=== PATIENT | female | born 1970 | race African-American/Black ===

== ENCOUNTER 2021-07-15 22:56 | Inpatient (IN) ==
[2021-07-16 00:42] LABS: Basophils % 0.3 % (0.0-0.8); Hematocrit 38.9 VOL% (35.7-47.0); Hemoglobin 12.9 GM/DL (12.0-16.0); Immature Granulocytes % 0.5 %; Immature Granulocytes Absolute 0.04 #; Lymphocytes # 1.4 10*3/uL (1.4-4.0); Lymphocytes % 18.8 % (21.3-54.2); Mean Corpuscular HGB Conc 33.2 GM/DL (32-36); Mean Corpuscular Volume 94.2 FL (87-102); Mean Platelet Volume 10.2 FL (9.6-12.0); Monocytes % 4.6 % (1.7-12.7); Neutrophils % 75.8 % (38.7-73.9); Platelet Count 228 T/CUMM (130-400); Red Blood Count 4.13 MC/CUMM (3.8-5.5); Red Cell Distribution Width 13.5 % (9.3-17.3); White Blood Count 7.3 T/CUMM (4-12)
[2021-07-16 00:48] LABS: Alanine Aminotransferase 23 U/L (13-56); Albumin 3.9 G/DL (3.4-5.0); Alkaline Phosphatase 99 U/L (45-117); Aspartate Amino Transferase 63 U/L (0-37); Bilirubin,Total < 0.39 MG/DL (0.20-1.00); Blood Urea Nitrogen 15 MG/DL (7-18); Calcium 8.9 MG/DL (8.5-10.1); Carbon Dioxide 27 MMOL/L (21-32); Estimated Glom Filtration Rate 87 ML/MIN; Glucose 138 MG/DL (74-106); Osmolality,Calculated 272.1 MOS/KG (273-304); Potassium 2.9 MMOL/L (3.5-5.1); Sodium 135 MMOL/L (136-145); Total Protein 8.1 G/DL (6.4-8.2)
[2021-07-16] MEDS ORDERED: MORPHINE 2 MG/1 ML SYRINGE IV PRN (00:50)
[2021-07-16] MEDS ORDERED: ONDANSETRON 4 MG/2 ML VIAL IV PRN ×2 (00:50→10:22)
[2021-07-16] MEDS ORDERED: MAGNESIUM HYDROXIDE SUSP 30 ML UDCUP PO PRN ×2 (00:50→08:59)
[2021-07-16 01:10] LABS: Barbiturates Screen,Urine Negative (Negative); Benzodiazepines Screen,Urine Negative (Negative); Cannabinoid Screen,Urine Negative (Negative); Opiate Screen,Urine Positive (Negative); Phencyclidine Screen,Urine Negative (Negative)
[2021-07-16 01:15] LABS: Bilirubin,Urine Negative (Negative); Blood, Urine Negative (Negative); Glucose,Urine (UA) Negative (Negative); Granular Casts,Urine 4 /LPF (0-1); Hyaline Casts,Urine 9 /LPF (0-3); Ketones,Urine Negative (Negative); Mucus,Urine Occasional /LPF (Occasional); Nitrite,Urine Negative (Negative); Protein,Urine 30 MG/DL; RBC,Urine <1 /HPF (0-4); Squamous Epithelial Cell,Urine Occasional /HPF (0-10); Urine Appearance CLEAR (Clear); Urine Color Yellow (Yellow); Urine Specific Gravity 1.008 (1.001-1.035); Urine Urobilinogen < 2.0 EU/DL (0.2-1.0)
[2021-07-16 01:34] LABS: PT Patient Result 10.8 SECS (10.5-12.0); Partial Thromboplastin Time 26.2 SECS (23.8-32.1)
[2021-07-16] MEDS: DEXTROSE 5% NACL 0.45% 1,000 ML IV SCH ×3 (01:35→23:12)
[2021-07-16] MEDS: HYDROmorphone 2 MG/1 ML VIAL IV PRN ×2 (01:36→05:50)
[2021-07-16 03:07] LABS: Hypochromasia 2+; Platelet Estimate Normal; Reactive Lymphocytes 1+
[2021-07-16] MEDS ORDERED: POTASSIUM CHLORIDE 20 MEQ TABLET PO ONE (03:07)
[2021-07-16] MEDS ORDERED: POTASSIUM CHLORIDE 20 MEQ TABLET PO STA (03:17)
[2021-07-16] MEDS ORDERED: fentaNYL 100 MCG/2 ML VIAL ONE ×2 (08:11→09:19)
[2021-07-16] MEDS ORDERED: MIDAZOLAM 2 MG/2 ML VIAL ONE (08:11)
[2021-07-16] MEDS: PANTOPRAZOLE 40 MG TABLET PO SCH (08:18)
[2021-07-16] MEDS ORDERED: BISACODYL 10 MG SUPP RECTAL PRN (08:59)
[2021-07-16] MEDS ORDERED: LACTULOSE 20 GM/30 ML UDCUP PO PRN (08:59)
[2021-07-16] MEDS ORDERED: PROMETHAZINE 25 MG/1 ML VIAL IM PRN (08:59)
[2021-07-16] MEDS ORDERED: diphenhydrAMINE CAP 25 MG CAPSULE PO PRN (08:59)
[2021-07-16] MEDS ORDERED: SEVOFLURANE 1 UNIT/15 MINUTE INH ONE (09:53)
[2021-07-16] MEDS ORDERED: LIDOCAINE 2% 5 ML VIAL ONE (09:53)
[2021-07-16] MEDS ORDERED: ROCURONIUM 50 MG/5 ML VIAL IV ONE (09:53)
[2021-07-16] MEDS ORDERED: PHENYLEPHRINE 1 MG/10 ML SYRINGE IV ONE (09:53)
[2021-07-16] MEDS ORDERED: propofoL 200 MG/20 ML VIAL IV ONE (09:53)
[2021-07-16] MEDS ORDERED: DEXAMETHASONE 4 MG/1 ML VIAL ONE (09:53)
[2021-07-16] MEDS ORDERED: ONDANSETRON 4 MG/2 ML VIAL ONE (09:53)
[2021-07-16] MEDS ORDERED: NEOSTIGMINE 10 MG/10 ML VIAL ONE (09:55)
[2021-07-16] MEDS ORDERED: GLYCOPYRROLATE 0.4 MG/2 ML VIAL ONE (09:55)
[2021-07-16] MEDS ORDERED: MEPERIDINE 25 MG/1 ML VIAL IV PRN (10:22)
[2021-07-16] MEDS ORDERED: HYDROmorphone 2 MG/1 ML VIAL IV PRN (10:22)
[2021-07-16] MEDS: LACTATED RINGERS 1,000 ML IV SCH (11:19)
[2021-07-16] MEDS ORDERED: ALBUTEROL/IPRATROPIUM 3 ML NEB RESP TX PRN (13:32)
[2021-07-16] MEDS ORDERED: LORazepam 2 MG/1 ML VIAL IV PRN (13:33)
[2021-07-16] MEDS ORDERED: NICOTINE 7 MG/24 HR PATCH TRANSDERM PRN (13:53)
[2021-07-17 04:26] LABS: Basophils % 0.1 % (0.0-0.8); Hematocrit 29.2 VOL% (35.7-47.0); Immature Granulocytes % 0.4 %; Immature Granulocytes Absolute 0.03 #; Lymphocytes # 1.6 10*3/uL (1.4-4.0); Lymphocytes % 18.3 % (21.3-54.2); Mean Corpuscular HGB Conc 32.5 GM/DL (32-36); Mean Corpuscular Volume 96.4 FL (87-102); Mean Platelet Volume 10.6 FL (9.6-12.0); Monocytes % 9.9 % (1.7-12.7); Neutrophils % 71.3 % (38.7-73.9); Red Blood Count 3.03 MC/CUMM (3.8-5.5); Red Cell Distribution Width 13.8 % (9.3-17.3); White Blood Count 8.5 T/CUMM (4-12)
[2021-07-17 04:27] LABS: Hemoglobin 9.5 GM/DL (12.0-16.0); Platelet Count 160 T/CUMM (130-400)
[2021-07-17 04:34] LABS: Calcium 8.3 MG/DL (8.5-10.1); Osmolality,Calculated 269.2 MOS/KG (273-304); Potassium 3.6 MMOL/L (3.5-5.1)
[2021-07-17] MEDS: LACTATED RINGERS 1,000 ML IV SCH (04:34)
[2021-07-17] MEDS: THIAMINE 100 MG TABLET PO SCH (09:50)
[2021-07-17] MEDS: PANTOPRAZOLE 40 MG TABLET PO SCH (09:50)
[2021-07-17] MEDS: amLODIPine 5 MG TABLET PO SCH (09:50)
[2021-07-17] MEDS: MULTIVITAMIN (CENTRUM) TABLET PO SCH (09:50)
[2021-07-17] MEDS: HYDROmorphone 2 MG/1 ML VIAL IV PRN (09:54)
[2021-07-18 08:22] LABS: Basophils % 0.1 % (0.0-0.8); Hematocrit 28.3 VOL% (35.7-47.0); Hemoglobin 9.4 GM/DL (12.0-16.0); Immature Granulocytes % 0.6 %; Immature Granulocytes Absolute 0.06 #; Lymphocytes # 2.5 10*3/uL (1.4-4.0); Lymphocytes % 25.4 % (21.3-54.2); Mean Corpuscular HGB Conc 33.2 GM/DL (32-36); Mean Corpuscular Volume 95.3 FL (87-102); Mean Platelet Volume 10.2 FL (9.6-12.0); Monocytes % 7.6 % (1.7-12.7); Neutrophils % 66.3 % (38.7-73.9); Platelet Count 159 T/CUMM (130-400); Red Blood Count 2.97 MC/CUMM (3.8-5.5); Red Cell Distribution Width 13.6 % (9.3-17.3); White Blood Count 9.8 T/CUMM (4-12)
[2021-07-18] MEDS: MULTIVITAMIN (CENTRUM) TABLET PO SCH (08:37)
[2021-07-18] MEDS: amLODIPine 5 MG TABLET PO SCH (08:38)
[2021-07-18] MEDS: THIAMINE 100 MG TABLET PO SCH (08:38)
[2021-07-18] MEDS: PANTOPRAZOLE 40 MG TABLET PO SCH (08:38)
[2021-07-19 05:50] LABS: Basophils % 0.2 % (0.0-0.8); Eosinophils % 0.1 % (0.00-10.9); Hematocrit 25.2 VOL% (35.7-47.0); Hemoglobin 8.4 GM/DL (12.0-16.0); Immature Granulocytes % 0.3 %; Immature Granulocytes Absolute 0.03 #; Lymphocytes % 23.3 % (21.3-54.2); Mean Corpuscular HGB Conc 33.3 GM/DL (32-36); Mean Corpuscular Volume 94.7 FL (87-102); Mean Platelet Volume 10.9 FL (9.6-12.0); Monocytes % 9.6 % (1.7-12.7); Neutrophils % 66.5 % (38.7-73.9); Platelet Count 160 T/CUMM (130-400); Red Blood Count 2.66 MC/CUMM (3.8-5.5); Red Cell Distribution Width 13.4 % (9.3-17.3); White Blood Count 8.8 T/CUMM (4-12)
[2021-07-19 06:14] LABS: Calcium 8.8 MG/DL (8.5-10.1); Osmolality,Calculated 266.2 MOS/KG (273-304); Potassium 3.4 MMOL/L (3.5-5.1)
[2021-07-19 08:03] VITALS: BP 122/74
[2021-07-19] MEDS ORDERED: POTASSIUM CHLORIDE 20 MEQ PACK PO ONE (08:30)
[2021-07-19] MEDS: THIAMINE 100 MG TABLET PO SCH (08:53)
[2021-07-19] MEDS: MULTIVITAMIN (CENTRUM) TABLET PO SCH (08:53)
[2021-07-19] MEDS: PANTOPRAZOLE 40 MG TABLET PO SCH (08:54)
[2021-07-19] MEDS: amLODIPine 5 MG TABLET PO SCH (08:57)
== END 2021-07-19 10:52 | disposition home health service (06) | DRG 482 ==
LOC: EDBD → EDUNIT# → N.ED 22:56 → N.EDINP 07-16 00:50 → N.3E 07-16 03:34
PROVIDERS: ADMIT Orthopaedic Surgery; ATTEND Orthopaedic Surgery